=== PATIENT | female | born 1960 | race African-American/Black ===

== ENCOUNTER 2024-10-24 00:35 | Emergency (ER) | payer OTHER, SELFPAY ==
[2024-10-24 00:38] VITALS: BMI 26.3
[2024-10-24 00:44] VITALS: BP 133/67
--- NOTE | 2024-10-24 00:52 | ED.GENMED ---
History of Present Illness
General
Chief Complaint: Chest Pain
Source: patient and ambulance crew
Exam Limitations: none
Time Seen by Provider: 10/24/24 00:51
Nursing documentation reviewed up to this point in time: agreed with
History of Present Illness
History of Present Illness:
64-year-old female with history of HTN, HLD, anxiety presents for chest pain. States she was watching TV at home and around 9:30 p.m. developed left upper chest and shoulder area pain she has experienced in the past and states 'I've had it before
and I think it's anxiety.'
She is experiencing a lot of stress at work and she was thinking about a rebuttal she has to provide to her Equal Employment office for a complaint against a coworker and it is due 11/05.
Denies SOB, lightheadedness, n/v. Denies weakness or numbness in extremities.
Past History
Past History
ED Past Medical History: HTN, Hypercholesterolemia and Psychiatric (anxiety)
ED Past Surgical History: Gynecological, Orthopedic and Other (Hernia repair)
Social History
Tobacco: Smoker
Alcohol: Occasional
Personal: Single
Living: with roommate
Employment: Employed
Review of Systems
Review of Systems
Allergies reviewed?: Yes
All Other Systems: ROS reviewed and negative except as documented in HPI and ROS
Constitutional: Denies fever or fatigue
Respiratory: Denies trouble breathing
Cardiac: Reports chest pain; Denies diaphoresis or palpitations
ABD/GI: Denies abdominal pain, nausea or vomiting
: Denies dysuria or difficulty voiding
Musculoskeletal: Reports no symptoms
Skin: Reports no symptoms
Neurological: Reports no symptoms
Phy Exam
Physical Exam
Physical Exam:
GENERAL: No acute distress. A&Ox3.
CONSTITUTIONAL: Afebrile.
EYES: clear, conjunctivae normal
ENMT: moist mucus membranes, Pharynx nl
RESPIRATORY: Regular respirations, nonlabored, lungs clear.
CARDIOVASCULAR: Regular rate and rhythm, no murmurs, no rubs.
GI: Soft, nontender, normal BS
MUSCULOSKELETAL: Moves with ease. Well perfused.
SKIN: Warm, dry, normal
PSYCH: Normal mood and affect. Well kept, interactive and appropriate
NEUROLOGIC: Awake, alert and oriented. No focal neurological deficits
Scores
Heart Score for Chest Pain Patients
STEMI patient?: Not applicable
Course
Orders/Labs/Results
Orders:
Orders
10/24/24 00:37
Electrocardiogram (*1) Urgent
Reason for Study: Chest Pain
Cardiac Monitoring- Treatment ONCE
EKG- Treatment ONCE
IV Insert/Care/Rem.- Treatment PRN
O2 Therapy [RESP] Urgent
Titrate/Wean O2 to maintain O2 sat greater than (%): 90
Special Instructions: Maintain sats >/=90%
Pulse Ox/spot Check [RESP] Urgent
Quantity: 1
Special Instructions: ON ROOM AIR
10/24/24 00:47
Complete Blood Count/With Diff Urgent
Comprehensive Metabolic Panel Urgent
Troponin I Urgent
10/24/24 01:55
Potassium Chloride [KCl] 40 meq PO NOW STA
Abnormal Lab Results
10/24/24
00:47
WBC 16.2 H 10^3/uL
(4.8-10.8)
MPV 10.6 H fL
(7.4-10.4)
Abs Immat Gran (auto) 0.1 H 10^3/uL
(0-0.05)
Absolute Neuts (auto) 11.2 H 10^3/uL
(1.4-6.5)
Absolute Lymphs (auto) 3.6 H 10^3/uL
(1.2-3.4)
Absolute Monos (auto) 1.1 H 10^3/uL
(0.1-0.6)
Potassium 3.1 L mmol/L
(3.5-5.1)
Glucose 113 H mg/dl
(70-99)
10/24/24 00:47
10/24/24 00:47
Vital Signs
Initial and Last Documented VS:
Initial Vital Signs
BP
133/67
10/24/24 00:44
Last Documented Vital Signs
Temp Pulse Resp BP Pulse Ox
98.7 F 56 11 136/50 100
10/24/24 00:51 10/24/24 02:00 10/24/24 02:00 10/24/24 01:00 10/24/24 02:00
MDM/Problems Addressed
Differential Diagnosis Includes:
ACS, angina, anxiety
MDM/Problems Addressed:
64-year-old female with history of HTN, HLD, anxiety presents for chest pain. States she was watching TV at home and around 9:30 p.m. developed left upper chest and shoulder area pain she has experienced in the past and states 'I've had it before
and I think it's anxiety.'
She is experiencing a lot of stress at work and she was thinking about a rebuttal she has to provide to her Equal Employment office for a complaint against a coworker and it is due 11/05.
Denies SOB, lightheadedness, n/v. Denies weakness or numbness in extremities.
EKG: Sinus bradycardia HR 56 Pt on beta pino
1:45 a.m.
CBC: WBC 16.2, this is most likely reactive to stress that she was tearful and upset on arrival
CMP: potassium 3.1, 1 dose potassium given here and she was provided a potassium rich food list, otherwise normal
Troponin negative
Considered a chest x-ray but patient was seen by her bingo checker at the end of 2023 and she thinks she had a chest x-ray then and kindly declines having another chest x-ray.
Had nuclear stress test Jul 18, 2024 I reviewed the results in her portal: unremarkable
Patient states her chest pain is much improved still there 'a little.'
There is no indication of cardiac etiology of her symptoms.
Stable for discharge
*EKG
EKG Intrepretation Date: 10/24/24
Interpretation: abnormal
Comparison EKG: no comparison EKG present
Heart Rate: 56
Rate: bradycardiac
Rhythm: sinus
Thiells: normal axis
Interval: normal interval
QRS Pattern: normal QRS
Ischemia: no ischemia
*Critical Care Note
Total Time (30-74mins, 75-104mins- exclusive of procedures): Not Applicable
ED Attending Note
-
Portions of this chart may have been created with voice recognition software.� Occasional wrong word or��sound alike� substitutions may have occurred due to the inherent limitations of voice recognition software.
Discharge Plan
Departure
Patient Disposition: Home (Routine Discharge)
Date of Disposition: 10/24/24
Time of Disposition: 01:47
Patient with high blood pressure during this ER visit?: No
Condition: Good
Discharge Problem:
Atypical chest pain, Anxiety, Stress at work
Instructions: Chest Pain That Is Not Caused by the Heart (DC), High-potassium diet, Stress, Anxiety in adults - ED discharge instructions
Prescriptions:
No Action
bisoprolol-hydrochlorothiazide 5-6.25 mg Tablet
1 tab PO DAILY
amlodipine 5 mg Tablet
5 mg PO DAILY
aspirin [Yovani Low Dose Aspirin] 81 mg Tablet,Delayed Release (Dr/Ec)
81 mg PO DAILY
alprazolam [Xanax] 0.5 mg Tablet
0.5 mg PO BID PRN (Reason: anxiety)
atorvastatin
40 mg PO DAILY
Referrals:
Natalio Mathew MD [Family Provider] - As needed
Activity Restrictions/Additional Instructions:
As we discussed, your workup here shows nothing worrisome, specifically no sign of a heart attack.
Your potassium was a little low so we gave you a dose of potassium and I provided you with a list of foods high in potassium that you can eat more of
The high white blood cell count in your blood work is simply a reaction to stress and should normalize by itself.
Interventions
Interventions:
*Risk Screen - Suicide Last Done: 10/24/24 00:38
*General Assessment Last Done: 10/24/24 00:38
*Neglect/Abuse Screening Last Done: 10/24/24 00:38
*ED- Fall Risk Assessment Last Done: 10/24/24 00:38
*Nursing Disposition Last Done: 10/24/24 02:18
ED- Cardiac Assessment Last Done: 10/24/24 00:47
Discharge Date and Time
Discharge Date/Time: 10/24/24 02:19
Print Language: KENYAN
[2024-10-24 00:58] LABS: % Basophils 0.3 % (0-2); % Eosinophils 1.4 % (0-6); % Immature Granulocytes 0.4 % (0-0.5); % Lymphocytes 22.2 % (20.5-51.1); % Monocytes 6.5 % (1.7-9.3); % Neutrophils 69.2 % (42.2-75.2); Absolute Basophils 0.1 10^3/uL (0-0.2); Absolute Eosinophils 0.2 10^3/uL (0-0.7); Absolute Immature Granulocytes 0.1 10^3/uL (0-0.05); Absolute Lymphocytes 3.6 10^3/uL (1.2-3.4); Absolute Monocytes 1.1 10^3/uL (0.1-0.6); Absolute Neutrophils 11.2 10^3/uL (1.4-6.5); Hematocrit 38.8 % (37.0-47.0); Hemoglobin 13.3 g/dL (12.0-16.0); Mean Corp Hgb Conc. 34.3 g/dL (33.0-37.0); Mean Corpuscular Hgb 29.4 pg (27.0-31.0); Mean Corpuscular Volume 85.8 fL (81.0-99.0); Mean Platelet Volume 10.6 fL (7.4-10.4); Nucleated Red Blood Cells % 0 %; Platelet Count 257 10^3/uL (130-400); Red Blood Cell Count 4.52 10^6/uL (4.20-5.40); Red Cell Dist. Width 14.3 % (11.5-14.5); White Blood Cell Count 16.2 10^3/uL (4.8-10.8)
[2024-10-24 01:00] VITALS: BP 136/50
[2024-10-24 01:07] LABS: ALT (SGPT) 17 U/L (0-35); AST (SGOT) 20 U/L (14-36); Albumin 4.2 g/dl (3.5-5.0); Alkaline Phosphatase 118 U/L (38-126); Blood Urea Nitrogen 9 mg/dl (7-17); Calcium 9.5 mg/dl (8.4-10.2); Carbon Dioxide 28 mmol/L (22-30); Chloride 105 mmol/L (98-107); Estimated Creatinine Clearance 65 ml/min; Glucose 113 mg/dl (70-99); Potassium 3.1 mmol/L (3.5-5.1); Sodium 141 mmol/L (135-145); Total Bilirubin 0.7 mg/dl (0.2-1.3); Total Protein 6.7 g/dl (6.3-8.2); eGFR > 60.00
[2024-10-24 01:18] LABS: Troponin I < 0.012 ng/ml
[2024-10-24] MEDS: KCL 40 MEQ PO (01:59)
== END 2024-10-24 02:19 | disposition home or self-care (01) ==
LOC: EMR 00:35
PROVIDERS: EMERGENCY PHYSICIAN Emergency Medicine; FAMILY PHYSICIAN Family Medicine; REFERRING PHYSICIAN Internal Medicine Cardiovascular Disease
DX: R07.89 Other chest pain (principal); F41.9 Anxiety disorder, unspecified; Z56.6 Other physical and mental strain related to work; I10 Essential (primary) hypertension; E78.00 Pure hypercholesterolemia, unspecified; F17.200 Nicotine dependence, unspecified, uncomplicated
CPT/HCPCS: 99283; 80053; 84484; 85025; 93005